=== PATIENT | female | born 1960 | race Hispanic/Latino ===

== ENCOUNTER 2018-04-17 10:33 | Emergency (ER) | payer BC ==
[~2018-04-17] VITALS: Ht 157.5 cm; Wt 121.4 kg
[~2018-04-17 10:33] MED LIST: BACTRIM DS1 TAB PO; KEFLEX500 M1 PO; LEVOTHYROXIN50 MCG PO; METFORMIN850 MG PO; SIMVASTATIN20 MG PO; ZESTORETIC 10-11 TAB PO
[2018-04-17 11:19] LABS: INFLUENZA A NONE DETECTED (NONE DETECT); INFLUENZA B NONE DETECTED (NONE DETECT)
[2018-04-17] MEDS ORDERED: LOSARTAN POT25 MG PO (11:24)
[2018-04-17 11:25] LABS: HEMATOCRIT 38.5 % (37.0-47.0); HEMOGLOBIN 12.7 g/dl (12.0-16.0); IMMATURE GRANULOCYTES 0.3 % (0.0-1.0); MEAN CELL VOLUME 88.3 fL CALC (80.0-100.0); MEAN CORPUSCULAR HGB 29.1 pG CALC (26.0-32.0); NEUT# 6.34 thou/uL (2.00-7.15); RED BLOOD COUNT 4.36 mill/uL (4.20-5.60); RED CELL DISTRI WIDTH 12.8 % (11.5-15.5)
[2018-04-17 11:36] LABS: ALBUMIN 3.8 g/dL (3.2-5.0); ALKALINE PHOSPHATASE 95 u/l (38-126); ANION GAP 16 (6-22 (CALC)); BILIRUBIN, TOTAL 0.4 mg/dL (0.0-1.4); BUN 10 mg/dL (7-17); BUN/CREATININE RATIO 18 (12-20 (CALC)); CARBON DIOXIDE 27 mmol/l (22-30); CHLORIDE 100 mmol/l (95-108); CREATININE 0.5 mg/dL (0.5-1.0); GFR > 60 ML/MIN (>=60 (CALC)); GFR FOR AFR.AMER. > 60 ML/MIN (>=60 (CALC)); POTASSIUM 4.3 mmol/l (3.5-5.1); SGOT/AST 24 u/l (14-36); SGPT/ALT 40 u/l (9-52); SODIUM 139 mmol/l (137-146); TOTAL PROTEIN 7.3 g/dL (6.3-8.2)
[2018-04-17] MEDS ORDERED: PROAIR HFA108 MCG/AC PO (13:06)
[2018-04-17] MEDS ORDERED: ZITHROMAX500 MG PO (13:06)
[2018-04-17 13:15] VITALS: BP 109/55
== END 2018-04-17 13:20 | disposition home or self-care (01) | DRG 153 ==
LOC: ED 10:33
DX: J06.9 Acute upper respiratory infection, unspecified (principal); E11.65 Type 2 diabetes mellitus with hyperglycemia; E07.9 Disorder of thyroid, unspecified; I10 Essential (primary) hypertension

== ENCOUNTER → 2019-01-15 | Outpatient (REF) | payer BC ==
[~2019-01-15] VITALS: Ht 160 cm; Wt 119.7 kg
[~2019-01-15] MED LIST changes: +JANUVIA100 MG PO; +LOSARTAN POT25 MG PO; +MAXZIDE-2537.5 MG/TA PO; +PROAIR HFA108 MCG/AC PO; +ZITHROMAX500 MG PO
[2019-01-15 09:45] VITALS: BP 101/73
== END | disposition home or self-care (01) | DRG 951 ==
LOC: PO 08:44 → ORM 09:00
PROVIDERS: ATTEND Internal Medicine Gastroenterology
DX: Z01.818 Encounter for other preprocedural examination (principal); F33.8 Other recurrent depressive disorders; Z12.11 Encounter for screening for malignant neoplasm of colon; Z86.2 Personal history of diseases of the blood and blood-forming organs and certain disorders involving the immune mechanism; E11.9 Type 2 diabetes mellitus without complications; I10 Essential (primary) hypertension; E78.00 Pure hypercholesterolemia, unspecified; E03.9 Hypothyroidism, unspecified; Z90.49 Acquired absence of other specified parts of digestive tract; Z98.890 Other specified postprocedural states; Z97.2 Presence of dental prosthetic device (complete) (partial)

== ENCOUNTER 2019-01-18 08:34 | Day surgery (SDC) | payer BC ==
[2019-01-18 11:23] VITALS: BP 119/75
== END 2019-01-18 11:31 | disposition home or self-care (01) | DRG 392 ==
LOC: ENDO 08:34
PROVIDERS: ATTEND Internal Medicine Gastroenterology
PROC: 0DBP8ZX Excision of Rectum, Via Natural or Artificial Opening Endoscopic, Diagnostic (ICD-10-PCS; principal; 2019-01-18)
DX: K57.30 Diverticulosis of large intestine without perforation or abscess without bleeding (principal); K62.1 Rectal polyp; K64.4 Residual hemorrhoidal skin tags; K64.8 Other hemorrhoids; I10 Essential (primary) hypertension; E11.9 Type 2 diabetes mellitus without complications; E03.9 Hypothyroidism, unspecified

== ENCOUNTER 2019-06-16 19:26 | Emergency (ER) | payer BC ==
[~2019-06-16] VITALS: Ht 162.6 cm; Wt 120.5 kg
[~2019-06-16 19:26] MED LIST changes: -LOSARTAN POT25 MG PO; +LOSARTAN POTASS50 MG PO
[2019-06-16 20:04] LABS: HEMATOCRIT 38.3 % (37.0-47.0); HEMOGLOBIN 12.4 g/dl (12.0-16.0); IMMATURE GRANULOCYTES 0.4 % (0.0-5.0); MEAN CELL VOLUME 88.2 fL CALC (80.0-100.0); MEAN CORPUSCULAR HGB 28.6 pG CALC (26.0-32.0); MEAN CORPUSCULAR HGB CONC 32.4 g/L CALC (32.0-36.0); NEUT# 6.67 thou/uL (2.00-7.15); RED BLOOD COUNT 4.34 mill/uL (4.20-5.60); RED CELL DISTRI WIDTH 13.2 % (11.5-15.5)
[2019-06-16 20:08] LABS: URINE BILIRUBIN - DIPSTICK NEGATIVE (NEGATIVE); URINE BLOOD DIPSTICK NEGATIVE (NEGATIVE); URINE COLOR YELLOW; URINE GLUCOSE - DIPSTICK NEGATIVE (NEGATIVE); URINE KETONE NEGATIVE (NEGATIVE); URINE LEUK ESTERASE NEGATIVE (NEGATIVE); URINE NITRITE - DIPSTICK NEGATIVE (Negative); URINE PROTEIN - DIPSTICK NEGATIVE (NEG-TRACE); URINE UROBILINOGEN - DIPSTICK 0.2 E.U./dL (0.2)
[2019-06-16] MEDS ORDERED: GLIPIZIDE5 MG PO (20:10)
[2019-06-16 20:20] LABS: ALBUMIN 4.1 g/dL (3.2-5.0); ALKALINE PHOSPHATASE 116 u/l (38-126); AMYLASE 41 u/l (30-110); ANION GAP 15 (6-22 (CALC)); BILIRUBIN, TOTAL 0.5 mg/dL (0.0-1.4); BUN 6 mg/dL (7-17); BUN/CREATININE RATIO 8 (12-20 (CALC)); CARBON DIOXIDE 30 mmol/l (22-30); CHLORIDE 100 mmol/l (95-108); CREATININE 0.7 mg/dL (0.5-1.0); GFR > 60 ML/MIN (>=60 (CALC)); GFR FOR AFR.AMER. > 60 ML/MIN (>=60 (CALC)); LIPASE 130 u/l (23-300); POTASSIUM 4.1 mmol/l (3.5-5.1); SGOT/AST 23 u/l (14-36); SODIUM 141 mmol/l (137-146)
[2019-06-16 22:41] VITALS: BP 141/67
== END 2019-06-16 22:41 | disposition home or self-care (01) | DRG 392 ==
LOC: ED 19:26
PROVIDERS: Emergency Medicine
DX: K52.9 Noninfective gastroenteritis and colitis, unspecified (principal); E11.9 Type 2 diabetes mellitus without complications; I10 Essential (primary) hypertension; Z79.84 Long term (current) use of oral hypoglycemic drugs

== ENCOUNTER 2023-03-16 16:10 | Inpatient (IN) | payer OTHER ==
[~2023-03-16] VITALS: Ht 162.6 cm; Wt 120.6 kg
[~2023-03-16 16:10] MED LIST changes: +GLIPIZIDE5 MG PO
--- NOTE | 2023-03-16 16:15 | NUR ---
PATIENT TO ROOM 9 VIA W/C SON AT SIDE, TRIAGE DONE, CALL LIGHT IN REACH, PLACED ON AT 1L NC DUE TO C/O SOB 02 SAT 97%, ROOM NURSE AT BEDSIDE, PROVIDER NOTIFIED.
--- NOTE | 2023-03-16 16:21 | NUR ---
PATIENT TO ROOM 9
--- NOTE | 2023-03-16 17:00 | NUR ---
PT SON AT BEDSIDE. PT REPORTED TO HAVE SUDDEN SOB WHILE SITTING ON COUCH WATCHING TV. PT UNABLE TO LIE SUPINE, STATED SOB INCREASES. PT HAS HX OF DM, HTN, CKD, HYPOTHYROID, HLD. PT STATED SHE HAS NO FURTHER CARDIAC HX. BS WNL. EKG COMPLETE. IV STARTED AND MED TO ADMIN. INCREASED TEMP. AWARE, WILL CONTINUE TO MONITOR.
[2023-03-16] MEDS ORDERED: KERENDIA10 MG PO (17:03)
[2023-03-16] MEDS ORDERED: LASIX 40 MG TAB40 MG PO (17:03)
[2023-03-16] MEDS ORDERED: CLONIDINE0.2 MG PO (17:03)
[2023-03-16] MEDS ORDERED: FENOFIBRATE160 MG PO (17:04)
[2023-03-16] MEDS ORDERED: LEVOTHYROXIN112 MC1 PO (17:04)
[2023-03-16] MEDS ORDERED: JARDIANCE10 MG PO (17:05)
[2023-03-16] MEDS ORDERED: METFORMIN HCL1000 MG PO (17:06)
[2023-03-16] MEDS ORDERED: KLOR-CON M2020 MEQ PO (17:07)
[2023-03-16] MEDS ORDERED: D2000 ULTRA PO (17:08)
[2023-03-16 17:33] LABS: BASO% 0.3 % (0-3); EOS% 2.3 % (0-8); HEMATOCRIT 34.4 % (37.0-47.0); HEMOGLOBIN 11.1 g/dl (12.0-16.0); IMMATURE GRANULOCYTES 0.4 % (0.0-5.0); LYMPH% 11.8 % (15-41); MEAN CELL VOLUME 87.5 fL CALC (80.0-100.0); MEAN CORPUSCULAR HGB 28.2 pG CALC (26.0-32.0); MEAN CORPUSCULAR HGB CONC 32.3 g/dL CAL (32.0-36.0); MONO% 5.5 % (2-13); NEUT# 13.74 thou/uL (2.00-7.15); NEUT% 79.7 % (42-76); RED BLOOD COUNT 3.93 mill/uL (4.20-5.60); RED CELL DISTRI WIDTH 12.9 % (11.5-15.5)
[2023-03-16 17:44] LABS: ALBUMIN 4.4 g/dL (3.2-5.0); BILIRUBIN, TOTAL 0.4 mg/dL (0.02-1.3); CREATININE 1.5 mg/dL (0.5-1.0); TOTAL PROTEIN 8.3 g/dL (6.3-8.2)
--- NOTE | 2023-03-16 18:00 | NUR ---
PT SITTING IN CHAIR, REPORTS CANNOT LAY DOWN. O2 SAT WNL ALTHOUGH PT SOB STILL, O2 AT 4 LPM. WILL CONT TO MONITOR
--- NOTE | 2023-03-16 18:50 | NUR ---
REINFORCED PT TO KEEP ARM STRAIGHT TO ALLOW FLUIDS TO COMPLETE. ROCEPHIN COMPLETED AND TEMP ORALLY 102.3
[2023-03-16 19:31] LABS: URINE BILIRUBIN - DIPSTICK NEGATIVE (NEGATIVE); URINE BLOOD DIPSTICK TRACE-LYSED (NEGATIVE); URINE COLOR YELLOW; URINE GLUCOSE - DIPSTICK >=1000 mg/dL (NEGATIVE); URINE KETONE NEGATIVE (NEGATIVE); URINE LEUK ESTERASE NEGATIVE (NEGATIVE); URINE PH 5.5 (4.5-8.0); URINE PROTEIN - DIPSTICK 30 mg/dL (NEG-TRACE); URINE SPECIFIC GRAVITY <=1.005; URINE UROBILINOGEN - DIPSTICK 0.2 E.U./dL (0.2)
[2023-03-16 19:32] LABS: URINE NITRITE - DIPSTICK NEGATIVE (Negative)
[2023-03-16 19:35] LABS: URINE SQUAMOUS EPITHELIAL CELL FEW EPI/hpf (0-FEW)
--- NOTE | 2023-03-16 21:15 | NUR ---
REPORT RECEIVED FROM Janine POSEY RN.
[2023-03-16 21:27] VITALS: BP 107/56
--- NOTE | 2023-03-16 22:15 | NUR ---
PER PATIENT SHE TAKES LANTUS AT HOME. PATIENT STATES SHE TAKES 60 UNITS EVERY MORNING, BUT IT DEPENDS ON WHAT HER BLOOD SUGAR IS. ADDITIONALLY REPORTS TAKING SLIDING SCALE INSULIN WELL WELL. PATIENT DOES NOT KNOW IF SHE DOES LOW OR TRIP SLIDING SCALE. sHE ALSO REPORTS HSE TAKES LANTUS AT NIGHT SOMETIMES 12, SOMETIMES 14, BUT STATES SHE WAS JUST GIVEN INSULIN IN ADDITION TO METFORMIN AND GLIPIZIDE. PATIENT REPORTS SHE HAS A PAPER AT HOME WITH SPECIFI INSTRUCTIONS AND DOSING OF HER INSULIN. LANTUS AND SLIDIDING SCALE NOT ADDED TO PATIENT MED REC AT THIS TIME DUE TO PATIENT BEING UNSURE OF SPECIFIC DOSING. PATIENT IS TO HAVE HER SON BRING IN PAPER IN THE MORNING. ORDER FOR INCETIVE SPIROMETER NOTED, NO IS AVAILABLE AT THIS TIME. RT NOTIFIED.
--- NOTE | 2023-03-16 22:22 | NUR ---
PATIENT ARRIVED ON FLOOR ACCOMPANIED BY Janine POSEY RN. ASSEMENT COMPLETED AT THIS TIME. PATIENT LAERT AND ORIENTED X3. GENERALIZED WEAKNESS AND PAIN REPORTED BY PATIENT, TRACE EDEMA NOTED TO BUE AND BLE. STOMACH ROUND AND SOFT. PATIENT ON 2L OXYGEN, PER PATIENT SHE DOES NOT WEAR ANY AT HOME. CLARIFICATION ON TYLENOL ALLERGY, PATIENT STATES HER LIPS SWELL AND FEEL NUMB, SHE STATES SHE WAS GIVEN TYLENOL BUT DOES NOT REMEMBER WHEN. PATIENT ABLE TO GET UP TO BSC. IV FLUSEHD AT PATENT. FLUIDS STARTED. ORIENTED TO CALL LIGHT AND SYSTEM, CALL LIGHT AND BEDSIDE TABLE WITHIN REACH.
[2023-03-16 23:49] VITALS: BP 94/51
--- NOTE | 2023-03-16 23:56 | NUR ---
pt had a Bp of 98/51 . Notified nurse Lizzie.
[2023-03-17] VITALS (11 sets, daily range): BP systolic 92–127; BP diastolic 57–72
--- NOTE | 2023-03-17 | NUR ---
ATIENT RESTING COMOFRTABLY, NO APAPRENT DISTRESS NOTED. RESPIRATIONS EVEN AND UNLABORED. CALL LIGHT AND BEDSIDE TABLE WITHIN REACH.
--- NOTE | 2023-03-17 04:30 | NUR ---
PATIENT RESTING, NO APPARENT DISTRESS NOTED. RESPIRATIONS EVEN AND UNLBORED. RISE AND FALL OF CHEST NOTED. CALL LIGHT AND BEDSIDE TABLE WITHIN REACH.
[2023-03-17 05:50] LABS: BASO% 0.2 % (0-3); HEMATOCRIT 32.8 % (37.0-47.0); HEMOGLOBIN 10.6 g/dl (12.0-16.0); IMMATURE GRANULOCYTES 0.5 % (0.0-5.0); LYMPH% 5.1 % (15-41); MEAN CELL VOLUME 88.6 fL CALC (80.0-100.0); MEAN CORPUSCULAR HGB 28.6 pG CALC (26.0-32.0); MEAN CORPUSCULAR HGB CONC 32.3 g/dL CAL (32.0-36.0); MONO% 6.6 % (2-13); NEUT# 17.97 thou/uL (2.00-7.15); NEUT% 87.6 % (42-76); RED BLOOD COUNT 3.7 mill/uL (4.20-5.60); RED CELL DISTRI WIDTH 13.3 % (11.5-15.5)
[2023-03-17 06:06] LABS: ALBUMIN 3.7 g/dL (3.2-5.0); BILIRUBIN, TOTAL 0.4 mg/dL (0.02-1.3); CREATININE 1.7 mg/dL (0.5-1.0); MAGNESIUM 1.9 mg/dL (1.6-2.3); POTASSIUM 4.2 mmol/l (3.5-5.1); TOTAL PROTEIN 7.4 g/dL (6.3-8.2)
--- NOTE | 2023-03-17 07:00 | NUR ---
RECEIVE REPORT FROM ANGELINA MEZA.
--- NOTE | 2023-03-17 08:00 | NUR ---
PATIENT ALERT AND ORIENTED X3. NOT REFER TO PAIN OR DISCOMFORT AT THE TIME OF THIS NOTE. ASSESSMENT HEAD-TO TOE COMPLETE. PATIENT IS EDUCATED ABOUD MEDICATIONS AND NURSING PLAN FOR TODAY. PT REFER UNDERSTAND. SAFETY AND FALL PRECAUTIONS IN PLACE. CALL LIGHT WITHIN IN REACH.HE DOES NOT REFER TO PAIN OR DISCOMFORT AT THE TIME OF THIS NOTE.
--- NOTE | 2023-03-17 12:13 | NUR ---
PATIENT RESTING IN BED. RECEIVE TYLENOL ANY ALLERGY REACTION AT THIS TIME.
--- NOTE | 2023-03-17 16:12 | NUR ---
PATIENT RESTING COMFORTABLY, NO APAPRENT DISTRESS NOTED. RESPIRATIONS EVEN AND UNLABORED. CALL LIGHT AND BEDSIDE TABLE WITHIN REACH.
[2023-03-18] VITALS (9 sets, daily range): BP systolic 107–141; BP diastolic 58–81
[2023-03-18 07:11] LABS: BASO% 0.2 % (0-3); EOS% 0.4 % (0-8); HEMOGLOBIN 10.4 g/dl (12.0-16.0); IMMATURE GRANULOCYTES 0.9 % (0.0-5.0); LYMPH% 12.1 % (15-41); MEAN CELL VOLUME 91.2 fL CALC (80.0-100.0); MEAN CORPUSCULAR HGB 28.7 pG CALC (26.0-32.0); MEAN CORPUSCULAR HGB CONC 31.5 g/dL CAL (32.0-36.0); MONO% 5.8 % (2-13); NEUT# 10.76 thou/uL (2.00-7.15); NEUT% 80.6 % (42-76); RED BLOOD COUNT 3.62 mill/uL (4.20-5.60); RED CELL DISTRI WIDTH 13.7 % (11.5-15.5)
[2023-03-18 07:15] LABS: ALBUMIN 3.7 g/dL (3.2-5.0); BILIRUBIN, TOTAL 0.3 mg/dL (0.02-1.3); CREATININE 1.4 mg/dL (0.5-1.0); MAGNESIUM 2.5 mg/dL (1.6-2.3); POTASSIUM 4.5 mmol/l (3.5-5.1); TOTAL PROTEIN 7.2 g/dL (6.3-8.2)
--- NOTE | 2023-03-18 08:25 | NUR ---
PATIENT RECIEVED, NO IV ACCESS, MULTIPLE ATTEMPTS MADE DURING THE PREVIOUS SHIFT, GEAR AND SPLINE GRINDER TO ATTEMPT ACCESS. PATIENT IN STABLE CONDITION, PATIENT SAFETY PRECAUTIONS IN PLACE.
--- NOTE | 2023-03-18 12:00 | NUR ---
PATIENT SITTING AT EDGE OF BED, NO NEEDS AT THIS TIME, PATIENT SAFETY MEASURES IN PLACE.
--- NOTE | 2023-03-18 19:40 | NUR ---
PT RESTING IN CHAIR AT BEDSIDE, NO SIGNS OF DISTRESS NOTED, RESP EVEN AND UNLABORED. PT ALERT AND ORIENTED X3, DISCUSSED POC, IV ANTIBIOTIC INITIATED. BLOOD SUGAR 279. NOTED EDEMA TO BLE AND ARMS. INCENTIVE SPIROMETER TEACHING PROVIDED, PT ABLE TO REACH 1000ML VOLUME. ASSESSMENT COMPLETED, CALL LIGHT IN REACH,CONTINUE TO MONITOR.
--- NOTE | 2023-03-19 | NUR ---
PT SITTING IN RECLINER AT BEDSIDE, DENIES ANY NEEDS OR COMPLAINTS AT THIS TIME. CALL LIGHT IN REACH,CONTINUE TO MONITOR.
[2023-03-19 04:00] VITALS: BP 138/65
--- NOTE | 2023-03-19 04:00 | NUR ---
PT RESTING IN RECLINER AT BEDSIDE WITH EYES CLOSED, NO SIGNS OF DISTRESS NOTED, RESP EVEN AND UNLABORED. CALL LIGHT IN REACH,CONTINUE TO MONITOR.
[2023-03-19 05:17] LABS: BASO% 0.3 % (0-3); EOS% 1.9 % (0-8); HEMATOCRIT 31.4 % (37.0-47.0); HEMOGLOBIN 9.9 g/dl (12.0-16.0); LYMPH% 18.5 % (15-41); MEAN CELL VOLUME 90.2 fL CALC (80.0-100.0); MEAN CORPUSCULAR HGB 28.4 pG CALC (26.0-32.0); MEAN CORPUSCULAR HGB CONC 31.5 g/dL CAL (32.0-36.0); MONO% 7.4 % (2-13); NEUT# 9.38 thou/uL (2.00-7.15); NEUT% 70.9 % (42-76); RED BLOOD COUNT 3.48 mill/uL (4.20-5.60); RED CELL DISTRI WIDTH 13.3 % (11.5-15.5)
[2023-03-19 05:33] LABS: ALBUMIN 3.5 g/dL (3.2-5.0); BILIRUBIN, TOTAL 0.2 mg/dL (0.02-1.3); CREATININE 1.2 mg/dL (0.5-1.0)
[2023-03-19 06:30] VITALS: BP 150/82
--- NOTE | 2023-03-19 07:00 | NUR ---
RECEIVED REPORT FROM PM NURSE. PT RESTING IN BED. VSS. ALL SAFETY MEASURES IN PLACE. NO NEEDS AT THIS TIME.
[2023-03-19 10:29] VITALS: BP 139/77
[2023-03-19 14:50] VITALS: BP 124/72
[2023-03-19 18:52] VITALS: BP 121/67
--- NOTE | 2023-03-19 19:27 | NUR ---
PT SITTING IN RECLINER AT BEDSIDE, NO SIGNS OF DISTRESS NOTED, RESP EVEN AND UNLABORED. PT ALERT AND ORIENTED X3, DISCUSSED POC, PT HAS EDEMA TO BLE, ENCOURAGED PT TO ELEVATE WHILE IN RECLINER, VERBALIZED UNDERSTANDING. INCENTIVE SPIROMETER AT BEDSIDE, ENCOURAGED IT'S USE. RN AT BEDSIDE TO START ROCEPHIN, ASSESSMENT COMPLETED, CALL LIGHT IN REACH,CONTINUE TO MONITOR.
--- NOTE | 2023-03-20 | NUR ---
PT ASSISTED TO BATHROOM, NO SIGNS OF DISTRESS NOTED, RESP EVEN AND UNLABORED. PT STATES SHE WANTS TO SLEEP IN THE RECLINER. [address], WARM BLANKET PROVIDED. CALL LIGHT IN REACH,CONTINUE TO MONITOR.
--- NOTE | 2023-03-20 03:53 | NUR ---
PT RESTING IN RECLINER AT BEDSIDE, NO SIGNS OF DISTRESS NOTED, RESP EVEN AND UNLABORED. CALL LIGHT IN REACH,CONTINUE TO MONITOR.
[2023-03-20 04:21] VITALS: BP 123/64
[2023-03-20 05:48] LABS: BASO% 0.5 % (0-3); EOS% 5.8 % (0-8); HEMATOCRIT 32.3 % (37.0-47.0); HEMOGLOBIN 9.9 g/dl (12.0-16.0); IMMATURE GRANULOCYTES 1.7 % (0.0-5.0); LYMPH% 28.2 % (15-41); MEAN CELL VOLUME 92.6 fL CALC (80.0-100.0); MEAN CORPUSCULAR HGB 28.4 pG CALC (26.0-32.0); MEAN CORPUSCULAR HGB CONC 30.7 g/dL CAL (32.0-36.0); MONO% 8.9 % (2-13); NEUT# 4.82 thou/uL (2.00-7.15); NEUT% 54.9 % (42-76); RED BLOOD COUNT 3.49 mill/uL (4.20-5.60); RED CELL DISTRI WIDTH 13.3 % (11.5-15.5)
[2023-03-20 06:15] LABS: ALBUMIN 3.6 g/dL (3.2-5.0); BILIRUBIN, TOTAL 0.2 mg/dL (0.02-1.3); CREATININE 1.2 mg/dL (0.5-1.0); POTASSIUM 4.4 mmol/l (3.5-5.1); TOTAL PROTEIN 7.1 g/dL (6.3-8.2)
[2023-03-20 07:04] VITALS: BP 166/89
--- NOTE | 2023-03-20 08:00 | NUR ---
PT ALERT AND ORIENTED.ABLE TO MAKE NEEDS KNOWN.KNOWS LITTLE CROATIAN,MOSTLY ARMENIAN SPEAKING.NO C/O PAIN.RESPIRATIONS EVEN,NON-LABORED.NO SOB NOTED O2 @ 2L VIA NC.PT SEATED IN RECLINER.SAFETY PRECAUTIONS IN PLACE.CALL LIGHT IN PLACE.
[2023-03-20 10:39] VITALS: BP 147/71
[2023-03-20] MEDS ORDERED: OMNICEF300 MG PO (10:57)
--- NOTE | 2023-03-20 12:00 | NUR ---
PT ALERT AND ORIENTED.NO C/O PAIN.FAMILY AT BEDSIDE.PT SEATED IN RECLINER.NO DISTRESS NOTED.SAFETY PRECAUTIONS IN PLACE.CALL LIGHT WITHIN REACH.
--- NOTE | 2023-03-20 14:38 | NUR ---
Discharge instructions given.iv removed and tele removed from pt.Patient verbalizes understanding of same. Discharged in stable condition via Wheelchair to Home with family. All belongings sent with pt.
== END 2023-03-20 14:25 | disposition home or self-care (01) | DRG 871 ==
LOC: ED 16:10 → ED-I 19:50 → ED 20:06 → MS2 20:07
PROVIDERS: Family Medicine; Internal Medicine; Nurse Practitioner Family; ADMIT Internal Medicine; ATTEND Internal Medicine
DX: A40.1 Sepsis due to streptococcus, group B (principal); J18.9 Pneumonia, unspecified organism; I10 Essential (primary) hypertension; E11.9 Type 2 diabetes mellitus without complications; E03.9 Hypothyroidism, unspecified; E78.00 Pure hypercholesterolemia, unspecified; Z79.84 Long term (current) use of oral hypoglycemic drugs; Z20.822 Contact with and (suspected) exposure to COVID-19

== ENCOUNTER 2024-06-01 12:00 | Emergency (ER) | payer OTHER ==
[~2024-06-01] VITALS: Ht 162.6 cm; Wt 83.9 kg
[~2024-06-01 12:00] MED LIST changes: +CLONIDINE0.2 MG PO; +D2000 ULTRA PO; +FENOFIBRATE160 MG PO; +JARDIANCE10 MG PO; +KERENDIA10 MG PO; +KLOR-CON M2020 MEQ PO; +LASIX 40 MG TAB40 MG PO; +LEVOTHYROXIN112 MC1 PO; +METFORMIN HCL1000 MG PO; +OMNICEF300 MG PO
[2024-06-01 12:11] VITALS: BP 97/60
[2024-06-01] MEDS ORDERED: IBUPROFEN 200 MG/TAB PO ONE (12:15)
[2024-06-01 12:30] VITALS: BP 111/61
[2024-06-01] MEDS ORDERED: PAXLOVID 10 X 11 TAB PO (12:46)
[2024-06-01 12:49] VITALS: BP 111/61
== END 2024-06-01 12:58 | disposition home or self-care (01) | DRG 179 ==
LOC: ED 12:00
DX: U07.1 COVID-19 (principal); R50.9 Fever, unspecified; J02.9 Acute pharyngitis, unspecified; R05.9 Cough, unspecified; H92.09 Otalgia, unspecified ear; I10 Essential (primary) hypertension; E11.9 Type 2 diabetes mellitus without complications; E78.00 Pure hypercholesterolemia, unspecified; Z79.84 Long term (current) use of oral hypoglycemic drugs

== ENCOUNTER 2024-11-22 15:40 | Emergency (ER) | payer OTHER ==
[~2024-11-22] VITALS: Ht 162.6 cm; Wt 113.0 kg
[~2024-11-22 15:40] MED LIST changes: +PAXLOVID 10 X 11 TAB PO
[2024-11-22] MEDS ORDERED: OSELTAMIVIR PHOSPHATE 75 MG/TAB CAP PO ONE (17:10)
[2024-11-22 17:30] VITALS: BP 115/58
[2024-11-22 17:45] VITALS: BP 129/69
[2024-11-22 18:15] VITALS: BP 145/86
[2024-11-22 18:30] VITALS: BP 135/78
[2024-11-22] MEDS ORDERED: TAM75CAP PO (19:52)
[2024-11-22 20:03] VITALS: BP 135/78
== END 2024-11-22 20:03 | disposition home or self-care (01) | DRG 195 ==
LOC: ED 15:40
DX: J10.1 Influenza due to other identified influenza virus with other respiratory manifestations (principal)

== ENCOUNTER 2025-02-01 12:11 | Emergency (ER) | payer OTHER ==
[2025-02-01] VITALS (7 sets, daily range): BP systolic 82–146; BP diastolic 49–80
[~2025-02-01] VITALS: Ht 162.6 cm; Wt 98.0 kg
[~2025-02-01 12:11] MED LIST changes: +TAM75CAP PO
[2025-02-01] MEDS ORDERED: FUROSEMIDE 40 MG/4 ML SDV IV ONE (12:35)
[2025-02-01 13:09] LABS: BASO% 0.4 % (0-3); EOS% 3.5 % (0-8); HEMOGLOBIN 10.8 g/dl (12.0-16.0); IMMATURE GRANULOCYTES 0.2 % (0.0-5.0); LYMPH% 27.1 % (15-41); MEAN CELL VOLUME 87.1 fL CALC (80.0-100.0); MEAN CORPUSCULAR HGB 28.5 pG CALC (26.0-32.0); MEAN CORPUSCULAR HGB CONC 32.7 g/dL CAL (32.0-36.0); MONO% 8.3 % (2-13); NEUT# 6.35 thou/uL (2.00-7.15); NEUT% 60.5 % (42-76); RED BLOOD COUNT 3.79 mill/uL (4.20-5.60); RED CELL DISTRI WIDTH 13.5 % (11.5-15.5)
[2025-02-01 13:29] LABS: ALBUMIN 3.9 g/dL (3.2-5.0); CREATININE 1.4 mg/dL (0.5-1.0); TOTAL PROTEIN 7.3 g/dL (6.3-8.2)
[2025-02-01 13:35] LABS: BILIRUBIN, TOTAL 0.4 mg/dL (0.02-1.3)
[2025-02-01 13:57] LABS: TSH, 3RD GENERATION 1.67 uIU/mL (0.47 - 4.68)
[2025-02-01] MEDS ORDERED: METHOCARBAMOL500 MG PO (14:30)
[2025-02-01 14:41] LABS: URINE BILIRUBIN - DIPSTICK Negative (NEGATIVE); URINE BLOOD DIPSTICK Negative (NEGATIVE); URINE GLUCOSE - DIPSTICK 250 mg/dL (NEGATIVE); URINE KETONE Negative (NEGATIVE); URINE LEUK ESTERASE Trace (NEGATIVE); URINE NITRITE - DIPSTICK Negative (Negative); URINE PH 5.5 (4.5-8.0); URINE PROTEIN - DIPSTICK Negative (NEG-TRACE); URINE SPECIFIC GRAVITY <=1.005; URINE UROBILINOGEN - DIPSTICK 0.2 E.U./dL (0.2)
[2025-02-01 14:43] LABS: URINE COLOR Yellow
[2025-02-03] MEDS ORDERED: METHOCARBAMOL500 MG PO (14:24)
== END 2025-02-01 15:04 | disposition home or self-care (01) ==
LOC: ED 12:11
PROVIDERS: Clinical Nurse Specialist Emergency
DX: M19.012 Primary osteoarthritis, left shoulder (principal); I10 Essential (primary) hypertension; E11.9 Type 2 diabetes mellitus without complications; E78.00 Pure hypercholesterolemia, unspecified; Z79.84 Long term (current) use of oral hypoglycemic drugs
CPT/HCPCS: J1940